=== PATIENT | male | born 1980 | race Caucasian/White ===

== ENCOUNTER 2023-11-23 06:48 | Day surgery (SDC) | payer OTHER ==
[~2023-11-23] VITALS: Ht 182.9 cm; Wt 77.2 kg
[~2023-11-23 06:48] MED LIST: BENZ1; CLON2; DIVA500ER; HALO5; LEVSOD25; OLAN10; QUET200; RXLORA1 PO
[2023-11-23] MEDS ORDERED: METO25 (07:04)
[2023-11-23] MEDS ORDERED: Prozac40 MG (07:04)
[2023-11-23] MEDS ORDERED: Naltrexone HCl50 MG (07:05)
[2023-11-23] MEDS ORDERED: OMEP20ER PO (07:05)
[2023-11-23] MEDS ORDERED: QUET200 PO (07:05)
[2023-11-23] MEDS ORDERED: MIRT15ST (07:05)
[2023-11-23] MEDS ORDERED: SENNA LAXATIVE8.6 MG (07:06)
[2023-11-23] MEDS ORDERED: THERA-D2000 UNIT (07:07)
[2023-11-23] MEDS ORDERED: METAMUCIL POWD798 GM (07:08)
[2023-11-23] MEDS ORDERED: MIRALAX1714 (07:09)
[2023-11-23] MEDS ORDERED: Calcium Carbon500 MG (07:09)
[2023-11-23] MEDS ORDERED: ACET500 (07:10)
[2023-11-23] MEDS ORDERED: FAMO20 (07:10)
[2023-11-23] MEDS ORDERED: Milk Of Ma400 MG/5 M (07:10)
[2023-11-23] MEDS ORDERED: Lactated Ringer's 1,000 ML IV ONE ×2 (07:31→07:49)
[2023-11-23] MEDS ORDERED: Lidocaine HCl 4% 5 ML SDA ONE (07:58)
[2023-11-23] MEDS ORDERED: propofoL 50 ML IV ONE (08:01)
[2023-11-23 09:06] VITALS: BP 111/71
--- NOTE | 2023-11-23 09:13 | NUR ---
11/23/23 0913 [place] Kay AT BEDSIDE IN SDU.
== END 2023-11-23 09:12 | disposition home or self-care (01) ==
LOC: ORSCSDS 06:48
PROVIDERS: Internal Medicine Gastroenterology
PROC: 0D757ZZ Dilation of Esophagus, Via Natural or Artificial Opening (ICD-10-PCS; principal; 2023-11-23 08:00)
PROC: 0DB58ZX Excision of Esophagus, Via Natural or Artificial Opening Endoscopic, Diagnostic (ICD-10-PCS; principal; 2023-11-23 08:00)
DX: R13.10 Dysphagia, unspecified (principal); K21.9 Gastro-esophageal reflux disease without esophagitis; I10 Essential (primary) hypertension; F31.9 Bipolar disorder, unspecified; R56.9 Unspecified convulsions; Z79.899 Other long term (current) drug therapy
CPT/HCPCS: 88305; J2001; J2003; J2704; J7120